=== PATIENT | female | born 1985 | race Caucasian/White ===

== ENCOUNTER → 2019-06-12 16:00 | Outpatient (CLI) | payer SELFPAY, OTHER ==
--- NOTE | 2019-06-12 16:11 | RAD_ITS ---
HISTORY: abd pain, low back and right hip pain ADDITIONAL HISTORY: None. COMPARISON: CT 01/20/2014 Technique: Supine abdominal radiographs Number of images including paperwork: 2 FINDINGS: FREE AIR: None detected. BOWEL GAS PATTERN: Nonobstructive. CALCIFICATIONS: No definite urinary tract calculi. ORGANS: No evidence of organomegaly. SOFT TISSUES: Unremarkable. BONES: No acute skeletal findings. RAD/Abdomen Single View IMPRESSION: No acute abdominal abnormality is radiographically apparent. at 2217 Reported and signed by: Zohreh Goss MD Electronically Signed: Zohreh Goss MD at 22:17 EST Tel , Service support ,
--- NOTE | 2019-06-12 16:11 | RAD_ITS ---
HISTORY: right hip pain ADDITIONAL HISTORY: None provided. TECHNIQUE: Right hip 2 views with AP pelvis Number of images including paperwork: 3 COMPARISON: None FINDINGS: BONES: No acute fracture. JOINTS: No subluxation. SOFT TISSUES: No distinct foreign body. RAD/HIP, UNI W/ Pelvis 2-3 Views IMPRESSION: No acute osseous abnormality. at 2215 Reported and signed by: Zohreh Goss MD Electronically Signed: Zohreh Goss MD at 22:15 EST Tel , Service support ,
== END ==
PROVIDERS: Family Provider Family Medicine; PCP Family Medicine; Referring Provider Family Medicine; Visit Provider Family Medicine
DX: M25.551 Pain in right hip (principal); R10.9 Unspecified abdominal pain
CPT/HCPCS: 73502; 74018

== ENCOUNTER → 2023-03-19 | Outpatient (CLI) | payer OTHER, SELFPAY ==
[2023-03-19 12:36] LABS: Cholesterol 202 mg/dL (200); High Density Lipoprotein 68 mg/dL; T4 Free Direct 0.84 ng/dL (0.76-1.46); Thyroid Stim Hormone (TSH) 1.11 uIU/mL (0.358-3.74); Triglycerides 68 mg/dL; Very Low Density Lipoprotein 14 mg/dL (5-40)
== END | disposition home or self-care (01) ==
LOC: BFHLAB 09:51
PROVIDERS: PCP Family Medicine; Referring Provider Family Medicine; Visit Provider Family Medicine
DX: R53.83 Other fatigue (principal); E78.5 Hyperlipidemia, unspecified
CPT/HCPCS: 36415; 80061; 84439; 84443